=== PATIENT | male | born 1985 | race Caucasian/White ===

== ENCOUNTER 2020-02-27 09:47 | Outpatient (CLI) | payer OTHER, SELFPAY ==
[2020-02-27 18:51] LABS: SARS-CoV-2 RNA PCR Negative
== END 2020-02-27 09:48 | disposition home or self-care (01) ==
LOC: ANHCOVIDDT 09:48
PROVIDERS: PCP Family Medicine; Visit Provider Urology
DX: Z01.818 Encounter for other preprocedural examination (principal); Z20.828 Contact with and (suspected) exposure to other viral communicable diseases
CPT/HCPCS: 87635; C9803; U0003

== ENCOUNTER 2020-03-01 01:00 | Day surgery (SDC) | payer OTHER, SELFPAY ==
[2020-02-27 09:36] VITALS: BMI 24.8
[2020-03-01] VITALS (9 sets, daily range): BP systolic 123–151; BP diastolic 80–99; PULSE 58–90; RESP 12–18; TEMP 36.2–36.3; O2SAT 99–100; BMI 25.0
--- NOTE | ~2020-03-01 | XR_ITS ---
EXAMINATION: XR urethrocystogram INDICATION: Urethrocystogram TECHNIQUE: Eight intraoperative fluoroscopic images are submitted for review. Total fluoroscopic time was 39.6 seconds COMPARISON: None available FINDINGS: Multiple fluoroscopic images demonstrate opacification of the urinary bladder which is norm al in size. Please refer to procedure note for full details. IMPRESSION: 1. Intraoperative cystogram. Please refer to procedure note for full details. Reviewed, dictated and finalized at location A. [employer]
--- NOTE | 2020-03-01 09:53 | WPDANESEPPF ---
Anes - Initial Pre Proc Eval Procedure: Operation Date: 03/01/20 13:00 Proposed Procedures p Cystoscopy, Urethral Dilation, Possible Retrograde Urethrogram - Rodney Soares MD Date/Time: 03/01/20 09:53 Surgeon: Rodney Soares MD Pre Op Diagnosis: Urethral Stricture Patient Data Age: 34 Gender: M Height: 1.8 m Weight: 80.9 kg Allergies Allergy/AdvReac Type Severity Reaction Status Date / Time No Known Allergies Allergy Verified 02/27/20 09:33 Home Medications Medication Instructions Recorded Confirmed Type finasteride 1 mg PO DAILY 02/27/20 02/27/20 History minoxidil 1 ml TOPICAL BID 02/27/20 02/27/20 History mirabegron 25 mg PO DAILY 02/27/20 02/27/20 History Patient hx anesthesia problems: none Family hx anesthesia problems: none PENDING SALE TO [facility] Past Medical History Medical History (Updated 03/01/20 @ 09:53 by Qamar López MD) Anxiety Urethral stricture Social History Social History Smoking status: Never smoker Living arrangements: with family Spiritual care concerns: No Anes - Eval Final PreProcedure Day of Procedure 03/01/20 09:53 Patient weight: normal Heart: regular rate and rhythm Lungs: clear to auscultation and normal air movement Airway: Mallampati scale class II Neurological: alert and oriented Last oral intake: >/= 8 hours ASA classification: II Emergent: no Anesthetic plan: proceed Anesthesia type and monitoring: general GIVS and LMA Informed Consent: The patient's anesthetic plan and its attendant risks and benefits were discussed with the patient/family/POA. Questions were solicited and answers provided to the satisfaction of the patient/family/POA.
--- NOTE | 2020-03-01 11:37 | WPDHPUPDATE1 ---
History and Physical Update Update Date/Time: 03/01/20 11:37 History and Physical has been reviewed, including an updated exam of the patient. There are NO changes in the patient's condition. Risks, benefits, and alternatives have been discussed and questions answered. Patient agrees to proceed with procedure. Proceed with cysto, uretethral dilation, possible retrograde urethrogram.
[2020-03-01] MEDS: LACTATED RINGERS 1,000 ML 30 ML IV CONT ×2 (11:41→14:17)
[2020-03-01] MEDS: LIDOCAINE HCL 2% GEL UROJET 10 ML PKG MUCOUS MEM (13:30)
[2020-03-01] MEDS: ceFAZolin 2 GM/D5W 50 ML 2 GM/50 ML BAG IVPB (13:31)
--- NOTE | 2020-03-01 13:35 | PM.PROC ---
Procedure Note - Detailed Date of procedure: 03/01/20 Pre-op diagnosis: Urethral Stricture Post-op diagnosis: same Procedure performed: Retrograde urethrogram, urethral dilation with am plantz dilators, complex Massey placement 18 Marshallese Saxman Description of procedure: patient is taken the operative suite and correctly identified. Once anesthesia was obtained he was placed in dorsal lithotomy position and prepped draped usual sterile fashion. Twenty-two Marshallese scope inserted urethra. It was noted that he has a fairly narrow in bulbar urethral stricture. A retrograde urethrogram was then performed through a 16 Marshallese red rubber catheter. This revealed the stricture which is about 1 cm in length.We were able to place a guidewire through this area and then replaced it with a superstiff guidewire. Using Amplantz dilators we dilated up to 24 Marshallese. Reinspection reveals the stricture to been at least a cm in length minimum. Prostate was nonobstructive. Bladder showed no evidence of lesions or tumors. Eighteen Marshallese Saxman tip catheter was then passed over the guidewire into the bladder inflated with 10 cc of sterile water. Anesthesia: GLMA Surgeon: Rodney Soares MD Drains: Yes Packing: No Pathology: none sent Complications: No immediate complications Condition: stable Disposition: PACU
[2020-03-01] MEDS: fentaNYL CITRATE INJ (*CRX) 100 MCG/2 ML VIAL 25 MCG IV PUSH ×3 (14:16→14:37)
[2020-03-01] MEDS: oxyCODONE HCL (*CRX) 5 MG TAB IR PO (15:12)
== END 2020-03-01 16:25 | disposition home or self-care (01) ==
PROVIDERS: PCP Family Medicine; Visit Provider Urology
PROC: (CPT 52352; principal; 2020-03-01 13:00)
DX: N35.912 Unspecified bulbous urethral stricture, male (principal)
CPT/HCPCS: 52281; 51610; 74450; A9270; C1726; C1769; J0690; J1100; J2250; J2405; J2704; J3010; J7120; Q9966

== ENCOUNTER 2020-11-28 07:44 | Outpatient (CLI) | payer OTHER, SELFPAY | END 2020-11-28 07:45 | disposition home or self-care (01) | LOC: ANHLAB 07:46 | PROVIDERS: PCP Family Medicine; Visit Provider Urology | DX: N35.919 Unspecified urethral stricture, male, unspecified site (principal) | CPT/HCPCS: 87086 ==

== ENCOUNTER 2020-12-03 00:12 | Day surgery (SDC) | payer OTHER, SELFPAY ==
[2020-11-27 16:58] VITALS: BMI 25.1
--- NOTE | 2020-12-02 12:43 | P.PNAN_ITS ---
Anes - Initial Pre Proc Eval Procedure: Operation Date: 12/03/20 09:30 Proposed Procedures p Cystoscopy, Retrograde Urethrogram, Urethral Dilation - Rodney Soares MD Date/Time: 12/02/20 12:43 Surgeon: Rodney Soares MD Pre Op Diagnosis: urethral stricture Patient Data Age: 35 Gender: M Height: 1.8 m Weight: 81.8 kg Allergies Allergy/AdvReac Type Severity Reaction Status Date / Time No Known Allergies Allergy Verified 12/03/20 08:06 Home Medications Medication Instructions Recorded Confirmed Type finasteride 1 mg PO DAILY 02/27/20 12/03/20 History minoxidil 1 ml TOPICAL BID 02/27/20 12/03/20 History Patient hx anesthesia problems: none Family hx anesthesia problems: none [facility] Past Medical History Medical History (Updated 03/01/20 @ 09:53 by Qamar López MD) Anxiety Urethral stricture Social History Social History Smoking status: Never smoker Alcohol intake: current Living arrangements: with family Spiritual care concerns: No Anes - Eval Final PreProcedure Day of Procedure 12/02/20 12:43 Patient weight: overweight Heart: regular rate and rhythm Lungs: clear to auscultation and normal air movement Airway: Mallampati scale class II Neurological: alert and oriented Last oral intake: >/= 8 hours ASA classification: II Emergent: no Anesthetic plan: proceed Anesthesia type and monitoring: general LMA Informed Consent: The patient's anesthetic plan and its attendant risks and benefits were discussed with the patient/family/POA. Questions were solicited and answers provided to the satisfaction of the patient/family/POA.
[2020-12-03] VITALS (9 sets, daily range): BP systolic 122–151; BP diastolic 74–96; PULSE 46–61; RESP 12–18; TEMP 36.2–36.3; O2SAT 98–100
--- NOTE | ~2020-12-03 | XR_ITS ---
EXAMINATION: XR urethrocystogram EXAM DATE: 12/03/2020 09:24 INDICATION: Retrograde urethrogram with dilation. TECHNIQUE: Fluoroscopy used during XR urethrocystogram performed by Dr. Rodney Soares MD. Radiologist was not present for the imaging or procedure. Total fluoroscopic time of 36 seconds. Th e DAP for this procedure was 371 radcm2. A total of 4 images sent to PACS from the exam. Comparison is made to prior examination from 03/01/2020. FINDINGS: Initial image demonstrates retrograde urethrogram with moderate short segment narrowing at the junction between the bulbous and membranous segments of the urethra. Also, the prosthetic urethr a appears diffusely quite narrow. Subsequent image demonstrates dilation catheter or balloon across t he segments. Correlate with procedure note. IMPRESSION: Urethral strictures. Status post dilation. Reviewed, dictated and finalized at location B.
--- NOTE | 2020-12-03 07:34 | WPDHPUPDATE1 ---
History and Physical Update Update Date/Time: 12/03/20 07:34 History and Physical has been reviewed, including an updated exam of the patient. There are NO changes in the patient's condition. Risks, benefits, and alternatives have been discussed and questions answered. Patient agrees to proceed with procedure. Proceed with cysto, retrograde urethrogram, urethral dilation.
[2020-12-03] MEDS: LACTATED RINGERS 1,000 ML 30 ML IV CONT (08:09)
[2020-12-03] MEDS: ceFAZolin 2 GM/D5W 50 ML 2 GM/50 ML BAG IVPB (08:53)
[2020-12-03] MEDS: LIDOCAINE HCL 2% GEL UROJET 10 ML PKG MUCOUS MEM (09:14)
--- NOTE | 2020-12-03 09:25 | P.OP_ITS ---
Procedure Note - Detailed Date of Procedure 12/03/20 Pre-op Diagnosis urethral stricture Post-op Diagnosis same Procedure Performed Retrograde urethrogram, cystoscopy, urethral dilation to 20 Moldovan, Massey catheter placement 18 Moldovan Andreafski tip Surgeon Rodney Soares MD Anesthesia general Findings Bulbar urethral stricture approximately 9-10 mm in length Description of Procedure Patient is taken to the operative suite and correctly identified. Once a nesthesia was obtained was placed in low-lying dorsal lithotomy position and prepped and draped usual sterile fashion. Cystoscopy is performed with a 19 Moldovan scope. He has bulbar stricture which in would not allow passage of the scope. Retrograde urethrogram was then performed using a 16 Moldovan red rubber catheter. The stricture appeared to be close to 1 cm in length approximately 8- 9 mm distal to the external sphincter. We placed a guidewire through this area under fluoroscopic guidance. Amplantz dilators were then used to dilate up to 20 Moldovan. Cystoscopy was then reperformed we were able to traverse the strictured area. Prostate nonobstructive. Bladder without tumors. 2% viscous lidocaine was inserted urethra. Eighteen Moldovan Andreafski tip catheter was then passed over the wire into the bladder. 10 cc was passed the balloon. Patient was taken recovery stable condition. Will plan on removing his catheter on . He will follow-up in the office in a couple weeks. Will discuss possibly self dilation with this patient. Drains Yes Packing No Pathology none sent Complications No immediate complications Condition stable Disposition PACU
[2020-12-03] MEDS: fentaNYL CITRATE INJ (*CRX) 100 MCG/2 ML VIAL 25 MCG IV PUSH ×4 (09:30→09:55)
[2020-12-03] MEDS: oxyCODONE HCL (*CRX) 5 MG TAB IR PO (10:28)
== END 2020-12-03 11:15 | disposition home or self-care (01) ==
PROVIDERS: PCP Family Medicine; Visit Provider Urology
PROC: (CPT 52352; principal; 2020-12-03 09:30)
DX: N35.912 Unspecified bulbous urethral stricture, male (principal)
CPT/HCPCS: 52281; 51610; 74450; A9270; C1726; C1769; J0690; J1100; J2250; J2405; J2704; J3010; J7120; Q9966